=== PATIENT | male | born 1970 | race American Indian/Alaskan Native ===

== ENCOUNTER 2019-07-05 14:00 | Emergency (ER) | payer SELFPAY | END 2019-07-05 15:00 | disposition left against medical advice (07) | LOC: ED 14:00 | DX: R07.9 Chest pain, unspecified (principal); Z53.21 Procedure and treatment not carried out due to patient leaving prior to being seen by health care provider | CPT/HCPCS: 93005; 93010 ==

== ENCOUNTER 2022-02-26 18:08 | Emergency (ER) | payer SELFPAY | END 2022-02-27 19:42 | disposition left against medical advice (07) | LOC: ED 18:08 | DX: R07.89 Other chest pain (principal); Z53.21 Procedure and treatment not carried out due to patient leaving prior to being seen by health care provider ==